=== PATIENT | male | born 1955 | race Caucasian/White ===

== ENCOUNTER 2018-10-01 16:45 | Inpatient (IN) | payer OTHER ==
[2018-10-01] MEDS ORDERED: ONDANSETRON 4 MG INJ IV ×3 (18:30→20:30)
[2018-10-01] MEDS: morphine 10 MG INJ IV (18:40)
[2018-10-01 18:42] LABS: ADD MAN DIFF? NO
[2018-10-01 18:47] LABS: WHITE BLOOD COUNT 11.7 10^3/ul (4.8-10.8)
[2018-10-01 18:47] LABS: BASOPHIL # 0.1 10^3/ul (0.0-0.1); BASOPHILS % 0.7 % (0.0-2.0); EOSINOPHILS # 0.3 10^3/ul (0.0-0.5); EOSINOPHILS % 2.9 % (0.0-7.0); HEMATOCRIT 37.8 % (42.0-52.0); HEMOGLOBIN 11.6 g/dl (14.0-18.0); LYMPHOCYTES # 2.9 10^3/ul (0.8-2.9); LYMPHOCYTES % 24.7 % (15.0-51.0); MEAN CORPUSCULAR HEMOGLOBIN 24.7 pg (29.0-33.0); MEAN CORPUSCULAR HGB CONC 30.7 g/dl (32.0-37.0); MEAN CORPUSCULAR VOLUME 80.6 fl (82.0-101.0); MONOCYTE # 1.2 10^3/ul (0.3-0.9); MONOCYTES % 10.2 % (0.0-11.0); NEUTROPHIL # 7.2 10^3/ul (1.6-7.5); NEUTROPHILS % 61.2 % (39.0-77.0); PLATELET COUNT 477 10^3/UL (140-415); RED BLOOD COUNT 4.69 10^6/ul (4.70-6.10); RED CELL DISTRIBUTION WIDTH 14.4 % (11.5-14.5)
[2018-10-01] MEDS ORDERED: ZOLPIDEM 5 MG TAB PO (19:00)
[2018-10-01 19:03] LABS: ALANINE AMINOTRANSFERASE 29 IU/L (13-69); ALBUMIN 4.2 g/dl (3.3-4.9); ALBUMIN/GLOBULIN RATIO 1.05; ALKALINE PHOSPHATASE 132 IU/L (42-121); ANION GAP 12 (5-13); ASPARTATE AMINO TRANSFERASE 31 IU/L (15-46); BILIRUBIN,INDIRECT 0.4 mg/dl (0-1.1); BILIRUBIN,TOTAL 0.4 mg/dl (0.2-1.3); BLOOD UREA NITROGEN 18 mg/dl (7-20); CALCIUM 9.8 mg/dl (8.4-10.2); CARBON DIOXIDE 29 mmol/L (21-31); CHLORIDE 99 mmol/L (97-110); CREATININE 0.86 mg/dl (0.61-1.24); Estimated GFR > 60 mL/min (>60); GLUCOSE 152 mg/dl (70-220); POTASSIUM 4.1 mmol/L (3.5-5.1); SODIUM 140 mmol/L (135-144); TOTAL PROTEIN 8.2 g/dl (6.1-8.1)
[2018-10-01 19:15] LABS: INR 1.17; PT RATIO 1.2
[2018-10-01 19:16] LABS: PARTIAL THROMBOPLASTIN TIME 34.8 Sec (23.0-35.0)
[2018-10-01] MEDS: DEXTROSE 5%-0.45% NACL 1,000 ML IV (19:57)
[2018-10-01] MEDS ORDERED: BISACODYL (EC) 5 MG TAB PO (20:30)
[2018-10-01] MEDS ORDERED: DOCUSATE SODIUM 100 MG CAP PO (20:30)
[2018-10-01] MEDS ORDERED: NACL 0.9% 3 ML SYG IV (20:30)
[2018-10-01] MEDS ORDERED: METOPROLOL 5 MG INJ (21:00)
[2018-10-01] MEDS: ACETAMINOPHEN 325 MG TAB PO (21:20)
[2018-10-01] MEDS: HYDROmorphONE 0.5 MG/0.5 ML SYG IV (22:08)
[2018-10-01] MEDS: HYDROmorphONE 1 MG/ML SYG IV (22:38)
[2018-10-02] MEDS ORDERED: SOD CHLORIDE 0.9% 1,000 ML IV
[2018-10-02] MEDS: DILTIAZEM 25 MG INJ IV ×2 (00:04→03:17)
[2018-10-02] MEDS: MAGNESIUM SULFATE 2 GM/50 ML 50 ML IVPB (00:11)
[2018-10-02 00:18] LABS: ADD MAN DIFF? NO
[2018-10-02 00:22] LABS: BASOPHIL # 0.1 10^3/ul (0.0-0.1); BASOPHILS % 0.7 % (0.0-2.0); EOSINOPHILS # 0.3 10^3/ul (0.0-0.5); EOSINOPHILS % 2.8 % (0.0-7.0); HEMATOCRIT 37.5 % (42.0-52.0); HEMOGLOBIN 11.5 g/dl (14.0-18.0); LYMPHOCYTES # 3.1 10^3/ul (0.8-2.9); LYMPHOCYTES % 28.4 % (15.0-51.0); MEAN CORPUSCULAR HEMOGLOBIN 24.9 pg (29.0-33.0); MEAN CORPUSCULAR HGB CONC 30.7 g/dl (32.0-37.0); MEAN CORPUSCULAR VOLUME 81.3 fl (82.0-101.0); MEAN PLATELET VOLUME 9.4 fl (7.4-10.4); MONOCYTE # 1.1 10^3/ul (0.3-0.9); MONOCYTES % 10.4 % (0.0-11.0); NEUTROPHIL # 6.3 10^3/ul (1.6-7.5); NEUTROPHILS % 57.4 % (39.0-77.0); PLATELET COUNT 458 10^3/UL (140-415); RED BLOOD COUNT 4.61 10^6/ul (4.70-6.10); RED CELL DISTRIBUTION WIDTH 14.6 % (11.5-14.5)
[2018-10-02] MEDS: HEPARIN 1000 UNITS/ML 10 ML INJ IV (00:26)
[2018-10-02] MEDS: HEPARIN 25000 UNITS/250 ML 250 ML IV ×2 (00:26→10:48)
[2018-10-02 00:42] LABS: INR 1.25; PARTIAL THROMBOPLASTIN TIME 32.5 Sec (23.0-35.0); PROTIME 15.8 Sec (11.9-14.9); PT RATIO 1.2
[2018-10-02] MEDS: morphine 4 MG/ML VIAL IV ×6 (01:38→22:43)
[2018-10-02] MEDS: DILTIAZEM-D5W 125MG/125ML DRIP 125 ML IV (04:57)
[2018-10-02] MEDS ORDERED: HEPARIN 1000 UNITS/ML 10 ML INJ IV (05:30)
[2018-10-02 07:18] LABS: ADD MAN DIFF? NO
[2018-10-02 07:21] LABS: BASOPHIL # 0.1 10^3/ul (0.0-0.1); BASOPHILS % 0.8 % (0.0-2.0); EOSINOPHILS # 0.3 10^3/ul (0.0-0.5); EOSINOPHILS % 3.1 % (0.0-7.0); HEMATOCRIT 36.7 % (42.0-52.0); HEMOGLOBIN 11.4 g/dl (14.0-18.0); LYMPHOCYTES % 20.5 % (15.0-51.0); MEAN CORPUSCULAR HEMOGLOBIN 25.1 pg (29.0-33.0); MEAN CORPUSCULAR HGB CONC 31.1 g/dl (32.0-37.0); MEAN CORPUSCULAR VOLUME 80.8 fl (82.0-101.0); MEAN PLATELET VOLUME 9.4 fl (7.4-10.4); MONOCYTE # 0.9 10^3/ul (0.3-0.9); NEUTROPHIL # 6.6 10^3/ul (1.6-7.5); NEUTROPHILS % 66.1 % (39.0-77.0); PLATELET COUNT 442 10^3/UL (140-415); RED BLOOD COUNT 4.54 10^6/ul (4.70-6.10); RED CELL DISTRIBUTION WIDTH 14.4 % (11.5-14.5)
[2018-10-02] MEDS ORDERED: VANCOMYCIN IV PER PHARMACY XX (07:30)
[2018-10-02 07:37] LABS: IRON 13 ug/dl (35-150)
[2018-10-02 07:39] LABS: ALANINE AMINOTRANSFERASE 26 IU/L (13-69); ALBUMIN 3.5 g/dl (3.3-4.9); ALKALINE PHOSPHATASE 117 IU/L (42-121); ANION GAP 7 (5-13); ASPARTATE AMINO TRANSFERASE 25 IU/L (15-46); BILIRUBIN,INDIRECT 0.3 mg/dl (0-1.1); BILIRUBIN,TOTAL 0.3 mg/dl (0.2-1.3); BLOOD UREA NITROGEN 18 mg/dl (7-20); CALCIUM 9.4 mg/dl (8.4-10.2); CARBON DIOXIDE 29 mmol/L (21-31); CHLORIDE 102 mmol/L (97-110); CREATININE 0.81 mg/dl (0.61-1.24); Estimated GFR > 60 mL/min (>60); GLUCOSE 259 mg/dl (70-220); POTASSIUM 4.2 mmol/L (3.5-5.1); SODIUM 138 mmol/L (135-144)
[2018-10-02 07:41] LABS: MAGNESIUM 1.9 mg/dl (1.7-2.5)
[2018-10-02 07:41] LABS: CHOL/HDL RATIO 4.2 RATIO; CHOLESTEROL 80 mg/dl (100-200); HDL CHOLESTEROL 19 mg/dl (30-78); LDL CHOLESTEROL,CALCULATED 45 mg/dl; TRIGLYCERIDES 81 mg/dl (0-149)
[2018-10-02 07:43] LABS: PARTIAL THROMBOPLASTIN TIME 44.5 Sec (23.0-35.0)
[2018-10-02 07:47] LABS: % IRON SATURATION 5 % SAT (22-52); TOTAL IRON BINDING CAPACITY 255 ug/dl (241-421)
[2018-10-02] MEDS: PIPER-TAZO 3.375 GM IV (PMX) 100 ML IVPB ×4 (08:21→23:46)
[2018-10-02] MEDS: FUROSEMIDE 20 MG INJ IV (08:34)
[2018-10-02] MEDS: VANCOMYCIN HCL 1.5 GM in SOD CHLORIDE 0.9% 250 ML IVPB (09:18)
[2018-10-02] MEDS ORDERED: morphine 2 MG INJ (10:01)
[2018-10-02] MEDS: morphine 2 MG INJ IV (10:09)
[2018-10-02] MEDS ORDERED: DEXTROSE 50% 50 ML SYRINGE IV ×2 (11:00)
[2018-10-02] MEDS ORDERED: GLUCOSE GEL 15 GRAM TUBE BUCCAL (11:00)
[2018-10-02] MEDS ORDERED: GLUCAGON 1 MG INJ IM (11:00)
[2018-10-02] MEDS ORDERED: GLUCOSE GEL 15 GRAM TUBE PO ×2 (11:00)
[2018-10-02 11:18] LABS: B-TYPE NATRIURETIC PEPTIDE 619 PG/ML (0-125)
[2018-10-02] MEDS: DOCUSATE SODIUM 250 MG CAP PO (11:51)
[2018-10-02] MEDS: METOPROLOL 25 MG TAB PO (11:51)
[2018-10-02] MEDS: MAGNESIUM SULFATE 1 GM/D5W 100 ML IVPB (11:52)
[2018-10-02] MEDS: morphine (ER) 15 MG TAB PO ×2 (11:56→21:31)
[2018-10-02] MEDS: INSULIN ASPART [NOVOLOG] 3 ML PEN SC ×5 (12:13→20:25)
[2018-10-02 12:26] LABS: CREATINE KINASE 164 IU/L (23-200)
[2018-10-02 12:39] LABS: CK INDEX 1.3; CK-MB 2.08 ng/ml (0.0-2.4); TROPONIN-I 0.038 ng/ml (0.000-0.120)
[2018-10-02] MEDS: AMIODARONE 150MG/D5W BOLUS 100 ML IV (13:11)
[2018-10-02] MEDS ORDERED: METOPROLOL 25 MG TAB PO (14:00)
[2018-10-02] MEDS: AMIODARONE 900 MG in DEXTROSE 5% 482 ML IV (14:22)
[2018-10-02] MEDS: SOD FERRIC GLUC COMPLX 125 MG in SOD CHLORIDE 0.9% 100 ML IVPB (14:25)
[2018-10-02] MEDS: METOPROLOL 50 MG TAB PO ×2 (14:43→21:31)
[2018-10-02] MEDS: ATORVASTATIN 20 MG TAB PO (20:16)
[2018-10-02] MEDS: ATORVASTATIN 40 MG TAB PO (20:16)
[2018-10-02] MEDS: VANCOMYCIN 1 GM 250 ML IVPB (20:17)
[2018-10-02] MEDS: INSULIN GLARGINE [LANTus] (100 UNITS/ML) SYG SC (20:26)
[2018-10-02 20:31] LABS: PARTIAL THROMBOPLASTIN TIME 71.2 Sec (23.0-35.0)
[2018-10-03] MEDS: morphine 4 MG/ML VIAL IV ×2 (02:01→05:07)
[2018-10-03] MEDS: ACCU-CHEK XX (02:12)
[2018-10-03] MEDS: PIPER-TAZO 3.375 GM IV (PMX) 100 ML IVPB ×4 (05:07→23:21)
[2018-10-03] MEDS: METOPROLOL 50 MG TAB PO ×3 (05:07→23:22)
[2018-10-03 05:53] LABS: ADD MAN DIFF? NO
[2018-10-03 06:01] LABS: WHITE BLOOD COUNT 12.2 10^3/ul (4.8-10.8)
[2018-10-03 06:01] LABS: BASOPHIL # 0.1 10^3/ul (0.0-0.1); BASOPHILS % 0.7 % (0.0-2.0); EOSINOPHILS # 0.3 10^3/ul (0.0-0.5); EOSINOPHILS % 2.1 % (0.0-7.0); HEMATOCRIT 35.6 % (42.0-52.0); HEMOGLOBIN 10.9 g/dl (14.0-18.0); LYMPHOCYTES # 2.6 10^3/ul (0.8-2.9); LYMPHOCYTES % 21.4 % (15.0-51.0); MEAN CORPUSCULAR HEMOGLOBIN 24.6 pg (29.0-33.0); MEAN CORPUSCULAR HGB CONC 30.6 g/dl (32.0-37.0); MEAN CORPUSCULAR VOLUME 80.4 fl (82.0-101.0); MEAN PLATELET VOLUME 9.5 fl (7.4-10.4); MONOCYTES % 7.9 % (0.0-11.0); NEUTROPHIL # 8.2 10^3/ul (1.6-7.5); NEUTROPHILS % 67.7 % (39.0-77.0); PLATELET COUNT 443 10^3/UL (140-415); RED BLOOD COUNT 4.43 10^6/ul (4.70-6.10); RED CELL DISTRIBUTION WIDTH 14.3 % (11.5-14.5)
[2018-10-03 06:35] LABS: ANION GAP 9 (5-13); BLOOD UREA NITROGEN 15 mg/dl (7-20); CALCIUM 9.1 mg/dl (8.4-10.2); CARBON DIOXIDE 27 mmol/L (21-31); CHLORIDE 102 mmol/L (97-110); CREATININE 0.71 mg/dl (0.61-1.24); Estimated GFR > 60 mL/min (>60); GLUCOSE 190 mg/dl (70-220); MAGNESIUM 1.8 mg/dl (1.7-2.5); POTASSIUM 3.8 mmol/L (3.5-5.1); SODIUM 138 mmol/L (135-144)
[2018-10-03 06:51] LABS: PROCALCITONIN 0.06 ng/mL (0.00-0.10)
[2018-10-03] MEDS ORDERED: GELATIN SIZE 100 SPONGE (06:54)
[2018-10-03] MEDS ORDERED: THROMBIN 5000 UNIT VIAL (06:55)
[2018-10-03] MEDS ORDERED: HEPARIN 1000 UNITS/ML 10 ML INJ ×2 (06:55→07:08)
[2018-10-03] MEDS ORDERED: MIDAZOLAM 1 MG/ML 2 ML INJ (07:08)
[2018-10-03] MEDS ORDERED: ROCURONIUM 50 MG INJ (07:08)
[2018-10-03] MEDS ORDERED: SUCCINYLCHOLINE CHLORIDE 100 MG/5 ML SYG IV (07:08)
[2018-10-03] MEDS ORDERED: CEFAZOLIN 1 GM INJ (07:08)
[2018-10-03] MEDS ORDERED: PROPOFOL 20 ML (07:08)
[2018-10-03 07:24] LABS: ERYTHROCYTE SEDIMENTATION RATE 85 mm/Hr (0-20)
[2018-10-03] MEDS: HEPARIN 1000 UNITS/ML 10 ML INJ IRR (07:25)
[2018-10-03] MEDS: VANCOMYCIN 1 GM 250 ML IVPB (07:36)
[2018-10-03] MEDS: INSULIN ASPART [NOVOLOG] 3 ML PEN SC ×7 (08:00→20:54)
[2018-10-03] MEDS ORDERED: PHENYLephrine (100 MCG/ML) 10ML SYG ×4 (08:51→10:40)
[2018-10-03] MEDS: morphine (ER) 15 MG TAB PO ×2 (09:00→16:59)
[2018-10-03] MEDS: DOCUSATE SODIUM 250 MG CAP PO (09:00)
[2018-10-03] MEDS: FUROSEMIDE 20 MG INJ IV (09:00)
[2018-10-03] MEDS ORDERED: ONDANSETRON 4 MG INJ IV (10:00)
[2018-10-03] MEDS ORDERED: HYDROmorphONE 1 MG/5 ML IV SYRINGE IV (10:00)
[2018-10-03] MEDS ORDERED: FENTAnyl 50 MCG/ML VIAL IV (10:00)
[2018-10-03] MEDS ORDERED: NEOSTIGMINE 3 MG/3 ML SYRINGE (11:14)
[2018-10-03] MEDS ORDERED: GLYCOPYRROLATE 0.4 MG INJ (11:14)
[2018-10-03] MEDS: SOD FERRIC GLUC COMPLX 125 MG in SOD CHLORIDE 0.9% 100 ML IVPB (13:00)
[2018-10-03] MEDS: niCARdipine 50 MG in SOD CHLORIDE 0.9% 480 ML IV (13:24)
[2018-10-03] MEDS: ASPIRIN 325 MG TAB PO (13:59)
[2018-10-03] MEDS: CLOPIDOGREL 75 MG TAB PO (13:59)
[2018-10-03] MEDS: HYDROmorphONE 1 MG/ML SYG IV ×2 (14:03→21:05)
[2018-10-03] MEDS: HEPARIN 25000 UNITS/250 ML 250 ML IV (14:10)
[2018-10-03] MEDS: HYDROmorphONE 0.5 MG/0.5 ML SYG IV (14:53)
[2018-10-03] MEDS: MAGNESIUM SULFATE 1 GM/D5W 100 ML IVPB (16:06)
[2018-10-03] MEDS: AMIODARONE 200 MG TAB PO (16:58)
[2018-10-03] MEDS ORDERED: METOPROLOL 50 MG TAB PO (18:00)
[2018-10-03] MEDS: DILTIAZEM 25 MG INJ IV (18:53)
[2018-10-03 19:08] LABS: VANCOMYCIN,TROUGH 9.6 ug/ml (10.0-20.0)
[2018-10-03] MEDS: AMIODARONE 900 MG in DEXTROSE 5% 482 ML IV (19:32)
[2018-10-03] MEDS: INSULIN GLARGINE [LANTus] (100 UNITS/ML) SYG SC (19:55)
[2018-10-03] MEDS: VANCOMYCIN HCL 1.25 GM in SOD CHLORIDE 0.9% 250 ML IVPB (20:25)
[2018-10-03] MEDS: ATORVASTATIN 40 MG TAB PO (20:49)
[2018-10-03] MEDS ORDERED: AMIODARONE 200 MG TAB PO (21:00)
[2018-10-04] MEDS: ACCU-CHEK XX (01:50)
[2018-10-04] MEDS: HYDROmorphONE 1 MG/ML SYG IV ×2 (04:26→11:45)
[2018-10-04 04:59] LABS: ADD MAN DIFF? NO
[2018-10-04 05:04] LABS: WHITE BLOOD COUNT 8.2 10^3/ul (4.8-10.8)
[2018-10-04 05:04] LABS: ABNORMAL IP MESSAGE 1; BASOPHIL # 0.1 10^3/ul (0.0-0.1); BASOPHILS % 0.6 % (0.0-2.0); EOSINOPHILS % 0.2 % (0.0-7.0); HEMATOCRIT 20.6 % (42.0-52.0); LYMPHOCYTES # 1.2 10^3/ul (0.8-2.9); LYMPHOCYTES % 14.4 % (15.0-51.0); MEAN CORPUSCULAR HGB CONC 30.6 g/dl (32.0-37.0); MEAN CORPUSCULAR VOLUME 81.7 fl (82.0-101.0); MONOCYTE # 0.8 10^3/ul (0.3-0.9); MONOCYTES % 9.8 % (0.0-11.0); NEUTROPHIL # 6.1 10^3/ul (1.6-7.5); NEUTROPHILS % 74.8 % (39.0-77.0); PLATELET COUNT 267 10^3/UL (140-415); POSITIVE DIFF @See below; RED BLOOD COUNT 2.52 10^6/ul (4.70-6.10); RED CELL DISTRIBUTION WIDTH 14.6 % (11.5-14.5)
[2018-10-04 05:12] LABS: HEMOGLOBIN 6.3 g/dl (14.0-18.0)
[2018-10-04 05:17] LABS: MAGNESIUM 1.9 mg/dl (1.7-2.5)
[2018-10-04 05:28] LABS: HEMOGLOBIN 8.8 g/dl (14.0-18.0)
[2018-10-04 05:28] LABS: HEMATOCRIT 28.5 % (42.0-52.0)
[2018-10-04] MEDS: METOPROLOL 50 MG TAB PO ×2 (05:30→12:00)
[2018-10-04] MEDS: PIPER-TAZO 3.375 GM IV (PMX) 100 ML IVPB ×4 (05:30→23:59)
[2018-10-04 05:33] LABS: ANION GAP 9 (5-13); BLOOD UREA NITROGEN 18 mg/dl (7-20); CALCIUM 8.6 mg/dl (8.4-10.2); CARBON DIOXIDE 24 mmol/L (21-31); CHLORIDE 106 mmol/L (97-110); CREATININE 1.24 mg/dl (0.61-1.24); Estimated GFR 59 mL/min (>60); GLUCOSE 198 mg/dl (70-220); POTASSIUM 4.2 mmol/L (3.5-5.1); SODIUM 139 mmol/L (135-144)
[2018-10-04] MEDS ORDERED: PHENYLephrine (100 MCG/ML) 10ML SYG (07:00)
[2018-10-04] MEDS: INSULIN ASPART [NOVOLOG] 3 ML PEN SC ×7 (07:35→20:46)
[2018-10-04] MEDS ORDERED: BACITRACIN 50000 UNITS INJ (07:40)
[2018-10-04] MEDS ORDERED: POLYMYXIN B 500000 UNIT INJ (07:41)
[2018-10-04] MEDS ORDERED: MIDAZOLAM 1 MG/ML 2 ML INJ (08:27)
[2018-10-04] MEDS ORDERED: FENTAnyl 50 MCG/ML VIAL (08:27)
[2018-10-04] MEDS ORDERED: PROPOFOL 20 ML (08:27)
[2018-10-04] MEDS: DOCUSATE SODIUM 250 MG CAP PO (08:29)
[2018-10-04] MEDS: FUROSEMIDE 20 MG INJ IV (08:29)
[2018-10-04] MEDS: LIDOCAINE 1% (MPF) 30 ML INJ (08:43)
[2018-10-04 09:30] LABS: ANISOCYTOSIS 1+ (0-0); BAND NEUTROPHILS #M 0.1 10^3/ul (0.0-0.6); BAND NEUTROPHILS % (M) 2 % (0-4); BURR CELLS 1+ (0-0); LYMPHOCYTES #M 1.2 10^3/ul (0.8-2.9); LYMPHOCYTES % (M) 15 % (15-51); MICROCYTOSIS 1+ (0-0); MONOCYTE #M 0.2 10^3/ul (0.3-0.9); MONOCYTES % (M) 3 % (0-11); PLATELET ESTIMATE NORMAL; POIKILOCYTOSIS 1+ (0-0); POLYCHROMASIA 2+ (0-0); SEG NEUT #M 6.6 10^3/ul (1.6-7.5); SEGMENTED NEUTROPHILS (M) % 80 % (39-77); SMUDGE%M 4 % (0-0); SPHEROCYTES 1+ (0-0)
[2018-10-04] MEDS: MAGNESIUM SULFATE 1 GM/D5W 100 ML IVPB (10:30)
[2018-10-04] MEDS: LABETALOL HCL 20MG INJ IV (10:31)
[2018-10-04] MEDS: ASPIRIN 325 MG TAB PO (10:31)
[2018-10-04] MEDS: APIXABAN 5 MG TABLET PO ×2 (10:31→20:40)
[2018-10-04] MEDS: VANCOMYCIN HCL 1.25 GM in SOD CHLORIDE 0.9% 250 ML IVPB ×2 (10:32→20:41)
[2018-10-04] MEDS: SOD CHLORIDE 0.9% 500 ML IV (10:38)
[2018-10-04] MEDS: SOD CHLORIDE 0.9% 1,000 ML IV (10:38)
[2018-10-04] MEDS: morphine (ER) 15 MG TAB PO ×2 (10:38→20:40)
[2018-10-04] MEDS: DAKINS 0.0125%(1/40) 473 ML SOLUTION TP (12:47)
[2018-10-04] MEDS: SOD FERRIC GLUC COMPLX 125 MG in SOD CHLORIDE 0.9% 100 ML IVPB (13:00)
[2018-10-04] MEDS: AMIODARONE 900 MG in DEXTROSE 5% 482 ML IV (14:58)
[2018-10-04] MEDS: METOPROLOL 25 MG TAB PO ×2 (17:53→23:58)
[2018-10-04] MEDS: INSULIN GLARGINE [LANTus] (100 UNITS/ML) SYG SC (19:41)
[2018-10-04] MEDS: ATORVASTATIN 40 MG TAB PO (20:40)
[2018-10-05] MEDS: ACCU-CHEK XX (02:23)
[2018-10-05 05:10] LABS: ADD MAN DIFF? NO
[2018-10-05 05:18] LABS: BASOPHIL # 0.1 10^3/ul (0.0-0.1); BASOPHILS % 0.8 % (0.0-2.0); EOSINOPHILS # 0.2 10^3/ul (0.0-0.5); EOSINOPHILS % 1.8 % (0.0-7.0); HEMATOCRIT 27.2 % (42.0-52.0); HEMOGLOBIN 8.1 g/dl (14.0-18.0); LYMPHOCYTES # 1.6 10^3/ul (0.8-2.9); LYMPHOCYTES % 14.4 % (15.0-51.0); MEAN CORPUSCULAR HEMOGLOBIN 24.8 pg (29.0-33.0); MEAN CORPUSCULAR HGB CONC 29.8 g/dl (32.0-37.0); MEAN CORPUSCULAR VOLUME 83.2 fl (82.0-101.0); MEAN PLATELET VOLUME 9.8 fl (7.4-10.4); MONOCYTE # 1.3 10^3/ul (0.3-0.9); MONOCYTES % 11.5 % (0.0-11.0); NEUTROPHIL # 8.1 10^3/ul (1.6-7.5); PLATELET COUNT 338 10^3/UL (140-415); RED BLOOD COUNT 3.27 10^6/ul (4.70-6.10); RED CELL DISTRIBUTION WIDTH 14.9 % (11.5-14.5)
[2018-10-05 05:18] LABS: WHITE BLOOD COUNT 11.3 10^3/ul (4.8-10.8)
[2018-10-05] MEDS: PIPER-TAZO 3.375 GM IV (PMX) 100 ML IVPB ×3 (05:42→18:02)
[2018-10-05] MEDS: METOPROLOL 25 MG TAB PO ×3 (05:43→18:11)
[2018-10-05 05:47] LABS: ANION GAP 9 (5-13); BLOOD UREA NITROGEN 22 mg/dl (7-20); CALCIUM 8.1 mg/dl (8.4-10.2); CARBON DIOXIDE 22 mmol/L (21-31); CHLORIDE 107 mmol/L (97-110); CREATININE 1.47 mg/dl (0.61-1.24); Estimated GFR 48 mL/min (>60); GLUCOSE 184 mg/dl (70-220); POTASSIUM 4.1 mmol/L (3.5-5.1); SODIUM 138 mmol/L (135-144)
[2018-10-05] MEDS: HYDROmorphONE 1 MG/ML SYG IV ×3 (06:42→16:37)
[2018-10-05] MEDS: INSULIN ASPART [NOVOLOG] 3 ML PEN SC ×7 (08:00→20:24)
[2018-10-05] MEDS: FUROSEMIDE 20 MG INJ IV (08:31)
[2018-10-05] MEDS: DOCUSATE SODIUM 250 MG CAP PO (08:31)
[2018-10-05] MEDS: morphine (ER) 15 MG TAB PO ×2 (08:32→20:19)
[2018-10-05] MEDS: APIXABAN 5 MG TABLET PO ×2 (08:32→20:19)
[2018-10-05] MEDS: AMIODARONE 200 MG TAB PO ×2 (10:31→20:20)
[2018-10-05] MEDS: DAKINS 0.0125%(1/40) 473 ML SOLUTION TP (10:35)
[2018-10-05] MEDS: SOD FERRIC GLUC COMPLX 125 MG in SOD CHLORIDE 0.9% 100 ML IVPB (15:31)
[2018-10-05] MEDS: morphine 4 MG/ML VIAL IV (18:20)
[2018-10-05] MEDS ORDERED: VANCOMYCIN HCL 1.25 GM in SOD CHLORIDE 0.9% 250 ML IVPB (20:00)
[2018-10-05] MEDS: ATORVASTATIN 40 MG TAB PO (20:18)
[2018-10-05] MEDS: VANCOMYCIN HCL 1.5 GM in SOD CHLORIDE 0.9% 250 ML IVPB (20:18)
[2018-10-05] MEDS: INSULIN GLARGINE [LANTus] (100 UNITS/ML) SYG SC (21:43)
[2018-10-06] MEDS: PIPER-TAZO 3.375 GM IV (PMX) 100 ML IVPB ×5 (00:50→23:30)
[2018-10-06] MEDS: METOPROLOL 25 MG TAB PO ×5 (00:50→23:31)
[2018-10-06] MEDS: HYDROmorphONE 1 MG/ML SYG IV ×3 (00:57→11:08)
[2018-10-06] MEDS: ACCU-CHEK XX (01:39)
[2018-10-06] MEDS: morphine 4 MG/ML VIAL IV (04:06)
[2018-10-06 06:34] LABS: ADD MAN DIFF? NO
[2018-10-06 06:36] LABS: WHITE BLOOD COUNT 11.8 10^3/ul (4.8-10.8)
[2018-10-06 06:36] LABS: BASOPHIL # 0.1 10^3/ul (0.0-0.1); BASOPHILS % 0.6 % (0.0-2.0); EOSINOPHILS # 0.2 10^3/ul (0.0-0.5); EOSINOPHILS % 1.8 % (0.0-7.0); HEMATOCRIT 26.8 % (42.0-52.0); HEMOGLOBIN 8.2 g/dl (14.0-18.0); LYMPHOCYTES # 1.6 10^3/ul (0.8-2.9); LYMPHOCYTES % 13.4 % (15.0-51.0); MEAN CORPUSCULAR HEMOGLOBIN 25.2 pg (29.0-33.0); MEAN CORPUSCULAR HGB CONC 30.6 g/dl (32.0-37.0); MEAN CORPUSCULAR VOLUME 82.5 fl (82.0-101.0); MEAN PLATELET VOLUME 9.7 fl (7.4-10.4); MONOCYTE # 1.3 10^3/ul (0.3-0.9); MONOCYTES % 10.7 % (0.0-11.0); NEUTROPHIL # 8.6 10^3/ul (1.6-7.5); NEUTROPHILS % 73.1 % (39.0-77.0); PLATELET COUNT 346 10^3/UL (140-415); RED BLOOD COUNT 3.25 10^6/ul (4.70-6.10); RED CELL DISTRIBUTION WIDTH 14.7 % (11.5-14.5)
[2018-10-06 07:01] LABS: ALBUMIN 3.1 g/dl (3.3-4.9); ANION GAP 9 (5-13); BLOOD UREA NITROGEN 29 mg/dl (7-20); CALCIUM 8.5 mg/dl (8.4-10.2); CARBON DIOXIDE 24 mmol/L (21-31); CHLORIDE 105 mmol/L (97-110); CREATININE 1.68 mg/dl (0.61-1.24); GLUCOSE 155 mg/dl (70-220); MAGNESIUM 2.3 mg/dl (1.7-2.5); PHOSPHORUS 4.1 mg/dl (2.5-4.9); POTASSIUM 4.2 mmol/L (3.5-5.1); SODIUM 138 mmol/L (135-144)
[2018-10-06] MEDS: APIXABAN 5 MG TABLET PO ×2 (08:38→20:22)
[2018-10-06] MEDS: FUROSEMIDE 20 MG INJ IV (08:38)
[2018-10-06] MEDS: AMIODARONE 200 MG TAB PO ×2 (08:38→20:23)
[2018-10-06] MEDS: DOCUSATE SODIUM 250 MG CAP PO (08:38)
[2018-10-06] MEDS: morphine (ER) 15 MG TAB PO ×2 (08:39→20:23)
[2018-10-06] MEDS: INSULIN ASPART [NOVOLOG] 3 ML PEN SC ×7 (08:47→20:31)
[2018-10-06] MEDS: DAKINS 0.0125%(1/40) 473 ML SOLUTION TP (08:48)
[2018-10-06] MEDS: SENNA/DOCUSATE NA (8.6MG/50MG) TAB PO ×2 (12:15→20:23)
[2018-10-06] MEDS: SOD FERRIC GLUC COMPLX 125 MG in SOD CHLORIDE 0.9% 100 ML IVPB (13:00)
[2018-10-06] MEDS: VANCOMYCIN HCL 1.5 GM in SOD CHLORIDE 0.9% 250 ML IVPB (20:20)
[2018-10-06] MEDS: ATORVASTATIN 40 MG TAB PO (20:23)
[2018-10-06] MEDS: GENTAMICIN 0.1% 15 GM OINT TOP (20:32)
[2018-10-06] MEDS: ACETAMINOPHEN 325 MG TAB PO (20:37)
[2018-10-06] MEDS: INSULIN GLARGINE [LANTus] (100 UNITS/ML) SYG SC (21:56)
[2018-10-07] MEDS: ACCU-CHEK XX (02:00)
[2018-10-07] MEDS: HYDROmorphONE 1 MG/ML SYG IV ×2 (02:29→08:40)
[2018-10-07] MEDS: PIPER-TAZO 3.375 GM IV (PMX) 100 ML IVPB ×4 (06:04→23:40)
[2018-10-07] MEDS: METOPROLOL 25 MG TAB PO ×2 (06:05→11:56)
[2018-10-07 06:17] LABS: ADD MAN DIFF? NO
[2018-10-07 06:22] LABS: BASOPHIL # 0.1 10^3/ul (0.0-0.1); BASOPHILS % 0.7 % (0.0-2.0); EOSINOPHILS # 0.5 10^3/ul (0.0-0.5); HEMOGLOBIN 8.4 g/dl (14.0-18.0); LYMPHOCYTES # 1.3 10^3/ul (0.8-2.9); LYMPHOCYTES % 14.3 % (15.0-51.0); MEAN CORPUSCULAR HEMOGLOBIN 24.6 pg (29.0-33.0); MEAN CORPUSCULAR VOLUME 81.9 fl (82.0-101.0); MEAN PLATELET VOLUME 9.3 fl (7.4-10.4); MONOCYTES % 10.1 % (0.0-11.0); NEUTROPHIL # 6.5 10^3/ul (1.6-7.5); NEUTROPHILS % 69.5 % (39.0-77.0); PLATELET COUNT 327 10^3/UL (140-415); RED BLOOD COUNT 3.42 10^6/ul (4.70-6.10); RED CELL DISTRIBUTION WIDTH 14.6 % (11.5-14.5)
[2018-10-07 06:22] LABS: WHITE BLOOD COUNT 9.4 10^3/ul (4.8-10.8)
[2018-10-07 07:07] LABS: ANION GAP 7 (5-13); BLOOD UREA NITROGEN 22 mg/dl (7-20); CALCIUM 8.8 mg/dl (8.4-10.2); CARBON DIOXIDE 26 mmol/L (21-31); CHLORIDE 107 mmol/L (97-110); CREATININE 1.25 mg/dl (0.61-1.24); GLUCOSE 119 mg/dl (70-220); PHOSPHORUS 3.2 mg/dl (2.5-4.9); POTASSIUM 3.8 mmol/L (3.5-5.1); SODIUM 140 mmol/L (135-144)
[2018-10-07] MEDS: INSULIN ASPART [NOVOLOG] 3 ML PEN SC ×7 (07:55→20:06)
[2018-10-07] MEDS: AMIODARONE 200 MG TAB PO ×2 (08:38→21:00)
[2018-10-07] MEDS: APIXABAN 5 MG TABLET PO (08:39)
[2018-10-07] MEDS: GENTAMICIN 0.1% 15 GM OINT TOP ×3 (08:39→21:07)
[2018-10-07] MEDS: SENNA/DOCUSATE NA (8.6MG/50MG) TAB PO ×2 (08:39→19:58)
[2018-10-07] MEDS: FUROSEMIDE 20 MG INJ IV (08:39)
[2018-10-07] MEDS: DAKINS 0.0125%(1/40) 473 ML SOLUTION TP (08:39)
[2018-10-07] MEDS: morphine (ER) 15 MG TAB PO ×2 (08:49→21:00)
[2018-10-07] MEDS: METOPROLOL 50 MG TAB PO ×2 (18:28→23:40)
[2018-10-07] MEDS: morphine 4 MG/ML VIAL IV (19:54)
[2018-10-07] MEDS: ATORVASTATIN 40 MG TAB PO (19:58)
[2018-10-07] MEDS: INSULIN GLARGINE [LANTus] (100 UNITS/ML) SYG SC (20:07)
[2018-10-07] MEDS: ENOXAPARIN 100 MG/ML SYG SC (21:05)
[2018-10-08] MEDS: ACCU-CHEK XX (01:10)
[2018-10-08] MEDS: morphine 4 MG/ML VIAL IV ×3 (02:13→21:53)
[2018-10-08] MEDS: METOPROLOL 50 MG TAB PO ×4 (05:35→22:00)
[2018-10-08] MEDS: PIPER-TAZO 3.375 GM IV (PMX) 100 ML IVPB ×4 (05:35→23:46)
[2018-10-08 06:59] LABS: ADD MAN DIFF? NO
[2018-10-08 07:10] LABS: WHITE BLOOD COUNT 10.4 10^3/ul (4.8-10.8)
[2018-10-08 07:10] LABS: BASOPHIL # 0.1 10^3/ul (0.0-0.1); BASOPHILS % 0.7 % (0.0-2.0); EOSINOPHILS # 0.6 10^3/ul (0.0-0.5); HEMATOCRIT 27.9 % (42.0-52.0); HEMOGLOBIN 8.4 g/dl (14.0-18.0); LYMPHOCYTES # 2.4 10^3/ul (0.8-2.9); LYMPHOCYTES % 23.5 % (15.0-51.0); MEAN CORPUSCULAR HEMOGLOBIN 24.7 pg (29.0-33.0); MEAN CORPUSCULAR HGB CONC 30.1 g/dl (32.0-37.0); MEAN CORPUSCULAR VOLUME 82.1 fl (82.0-101.0); MEAN PLATELET VOLUME 9.8 fl (7.4-10.4); MONOCYTE # 1.2 10^3/ul (0.3-0.9); MONOCYTES % 11.6 % (0.0-11.0); NEUTROPHILS % 57.5 % (39.0-77.0); NUCLEATED RED BLOOD CELLS% 0.2 /100WBC (0.0-0.0); PLATELET COUNT 371 10^3/UL (140-415); RED CELL DISTRIBUTION WIDTH 14.8 % (11.5-14.5)
[2018-10-08 07:29] LABS: ALBUMIN 3.1 g/dl (3.3-4.9); ANION GAP 10 (5-13); BLOOD UREA NITROGEN 28 mg/dl (7-20); CALCIUM 8.2 mg/dl (8.4-10.2); CARBON DIOXIDE 27 mmol/L (21-31); CHLORIDE 102 mmol/L (97-110); CREATININE 1.42 mg/dl (0.61-1.24); GLUCOSE 177 mg/dl (70-220); MAGNESIUM 1.9 mg/dl (1.7-2.5); POTASSIUM 3.8 mmol/L (3.5-5.1); SODIUM 139 mmol/L (135-144)
[2018-10-08] MEDS: INSULIN ASPART [NOVOLOG] 3 ML PEN SC ×7 (07:58→21:24)
[2018-10-08] MEDS: SENNA/DOCUSATE NA (8.6MG/50MG) TAB PO ×2 (08:51→20:07)
[2018-10-08] MEDS: morphine (ER) 15 MG TAB PO ×2 (08:51→20:07)
[2018-10-08] MEDS: DAKINS 0.0125%(1/40) 473 ML SOLUTION TP (08:52)
[2018-10-08] MEDS: FUROSEMIDE 20 MG INJ IV (08:53)
[2018-10-08] MEDS: AMIODARONE 200 MG TAB PO ×2 (08:53→20:09)
[2018-10-08] MEDS: GENTAMICIN 0.1% 15 GM OINT TOP ×3 (08:54→21:00)
[2018-10-08] MEDS ORDERED: LIDOCAINE 2% (SDV) 5 ML INJ (16:39)
[2018-10-08] MEDS ORDERED: FENTAnyl 50 MCG/ML VIAL (16:39)
[2018-10-08] MEDS ORDERED: MIDAZOLAM 1 MG/ML 2 ML INJ (16:39)
[2018-10-08] MEDS ORDERED: PROPOFOL 20 ML (16:39)
[2018-10-08] MEDS: LIDOCAINE 1% (MPF) 30 ML INJ (16:50)
[2018-10-08] MEDS ORDERED: ONDANSETRON 4 MG INJ (16:55)
[2018-10-08] MEDS ORDERED: METOCLOPRAMIDE 10 MG INJ (16:55)
[2018-10-08] MEDS ORDERED: EPHEDrine 25 MG/5 ML SYG (17:08)
[2018-10-08] MEDS ORDERED: ONDANSETRON 4 MG INJ IV (17:30)
[2018-10-08] MEDS ORDERED: MEPERIDINE 25 MG INJ IV (17:30)
[2018-10-08] MEDS ORDERED: DIPHENHYDRAMINE 50 MG INJ IV (17:30)
[2018-10-08] MEDS ORDERED: FENTAnyl 50 MCG/ML VIAL IV (17:30)
[2018-10-08] MEDS ORDERED: PROCHLORPERAZINE 10 MG INJ IV (17:30)
[2018-10-08] MEDS ORDERED: HYDROmorphONE 1 MG/5 ML IV SYRINGE IV ×2 (17:30)
[2018-10-08] MEDS: HYDROmorphONE 1 MG/5 ML IV SYRINGE IV (17:43)
[2018-10-08] MEDS: LACTATED RINGER'S 1,000 ML IV (17:54)
[2018-10-08] MEDS: ATORVASTATIN 40 MG TAB PO (20:09)
[2018-10-08] MEDS: NAPHAZOLINE/PHENIRAMINE 15 ML OPH BOTH EYES (20:12)
[2018-10-08] MEDS: INSULIN GLARGINE [LANTus] (100 UNITS/ML) SYG SC (21:24)
[2018-10-08] MEDS: HYDROmorphONE 1 MG/ML SYG IV (23:51)
[2018-10-09] MEDS: morphine 4 MG/ML VIAL IV ×3 (02:03→14:06)
[2018-10-09] MEDS: ACCU-CHEK XX (02:07)
[2018-10-09] MEDS: HYDROmorphONE 1 MG/ML SYG IV (04:04)
[2018-10-09] MEDS: LACTATED RINGER'S 1,000 ML IV (04:04)
[2018-10-09] MEDS: METOPROLOL 50 MG TAB PO ×2 (05:30→20:17)
[2018-10-09] MEDS: PIPER-TAZO 3.375 GM IV (PMX) 100 ML IVPB ×3 (05:30→17:29)
[2018-10-09 06:21] LABS: ADD MAN DIFF? NO
[2018-10-09 06:27] LABS: WHITE BLOOD COUNT 9.2 10^3/ul (4.8-10.8)
[2018-10-09 06:27] LABS: BASOPHIL # 0.1 10^3/ul (0.0-0.1); BASOPHILS % 0.8 % (0.0-2.0); EOSINOPHILS # 0.5 10^3/ul (0.0-0.5); EOSINOPHILS % 5.3 % (0.0-7.0); HEMATOCRIT 26.5 % (42.0-52.0); HEMOGLOBIN 8.1 g/dl (14.0-18.0); LYMPHOCYTES # 1.3 10^3/ul (0.8-2.9); LYMPHOCYTES % 14.3 % (15.0-51.0); MEAN CORPUSCULAR HEMOGLOBIN 25.3 pg (29.0-33.0); MEAN CORPUSCULAR HGB CONC 30.6 g/dl (32.0-37.0); MEAN CORPUSCULAR VOLUME 82.8 fl (82.0-101.0); MEAN PLATELET VOLUME 9.5 fl (7.4-10.4); MONOCYTE # 1.2 10^3/ul (0.3-0.9); MONOCYTES % 12.5 % (0.0-11.0); NEUTROPHIL # 6.1 10^3/ul (1.6-7.5); NEUTROPHILS % 66.6 % (39.0-77.0); NUCLEATED RED BLOOD CELLS% 0.2 /100WBC (0.0-0.0); PLATELET COUNT 351 10^3/UL (140-415); RED CELL DISTRIBUTION WIDTH 14.9 % (11.5-14.5)
[2018-10-09 06:48] LABS: ANION GAP 9 (5-13); BLOOD UREA NITROGEN 23 mg/dl (7-20); CALCIUM 8.6 mg/dl (8.4-10.2); CARBON DIOXIDE 27 mmol/L (21-31); CHLORIDE 103 mmol/L (97-110); CREATININE 1.36 mg/dl (0.61-1.24); Estimated GFR 53 mL/min (>60); GLUCOSE 139 mg/dl (70-220); MAGNESIUM 1.9 mg/dl (1.7-2.5); PHOSPHORUS 3.8 mg/dl (2.5-4.9); POTASSIUM 3.7 mmol/L (3.5-5.1); SODIUM 139 mmol/L (135-144)
[2018-10-09] MEDS: AMIODARONE 200 MG TAB PO ×2 (08:07→20:17)
[2018-10-09] MEDS: FUROSEMIDE 20 MG INJ IV (08:10)
[2018-10-09] MEDS: SENNA/DOCUSATE NA (8.6MG/50MG) TAB PO ×2 (08:11→20:16)
[2018-10-09] MEDS: GENTAMICIN 0.1% 15 GM OINT TOP ×3 (08:11→21:22)
[2018-10-09] MEDS: morphine (ER) 15 MG TAB PO (08:11)
[2018-10-09] MEDS: DAKINS 0.0125%(1/40) 473 ML SOLUTION TP (08:11)
[2018-10-09] MEDS: INSULIN ASPART [NOVOLOG] 3 ML PEN SC ×7 (08:16→20:58)
[2018-10-09] MEDS: MAGNESIUM SULFATE 2 GM/50 ML 50 ML IVPB (12:16)
[2018-10-09] MEDS ORDERED: ACETAMINOPHEN 1000MG/100ML IV 100 ML IVPB (15:00)
[2018-10-09] MEDS: HYDROCODONE/APAP (7.5/325) TAB PO ×2 (15:17→21:26)
[2018-10-09] MEDS: ACETAMINOPHEN 325 MG TAB PO (18:09)
[2018-10-09] MEDS: ATORVASTATIN 40 MG TAB PO (20:16)
[2018-10-09] MEDS: INSULIN GLARGINE [LANTus] (100 UNITS/ML) SYG SC (20:58)
[2018-10-09] MEDS: APIXABAN 5 MG TABLET PO (21:22)
[2018-10-10] MEDS: PIPER-TAZO 3.375 GM IV (PMX) 100 ML IVPB ×2 (00:43→05:32)
[2018-10-10] MEDS: ACETAMINOPHEN 325 MG TAB PO (02:13)
[2018-10-10] MEDS: ACCU-CHEK XX (02:49)
[2018-10-10 06:41] LABS: ADD MAN DIFF? NO
[2018-10-10 06:50] LABS: BASOPHIL # 0.1 10^3/ul (0.0-0.1); BASOPHILS % 0.6 % (0.0-2.0); EOSINOPHILS # 0.2 10^3/ul (0.0-0.5); EOSINOPHILS % 1.9 % (0.0-7.0); HEMATOCRIT 27.8 % (42.0-52.0); HEMOGLOBIN 8.4 g/dl (14.0-18.0); LYMPHOCYTES # 1.3 10^3/ul (0.8-2.9); LYMPHOCYTES % 13.2 % (15.0-51.0); MEAN CORPUSCULAR HEMOGLOBIN 24.9 pg (29.0-33.0); MEAN CORPUSCULAR HGB CONC 30.2 g/dl (32.0-37.0); MEAN CORPUSCULAR VOLUME 82.5 fl (82.0-101.0); MEAN PLATELET VOLUME 9.8 fl (7.4-10.4); MONOCYTE # 0.9 10^3/ul (0.3-0.9); MONOCYTES % 8.7 % (0.0-11.0); NEUTROPHIL # 7.4 10^3/ul (1.6-7.5); NUCLEATED RED BLOOD CELLS% 0.2 /100WBC (0.0-0.0); PLATELET COUNT 369 10^3/UL (140-415); RED BLOOD COUNT 3.37 10^6/ul (4.70-6.10); RED CELL DISTRIBUTION WIDTH 15.4 % (11.5-14.5)
[2018-10-10 06:50] LABS: WHITE BLOOD COUNT 9.9 10^3/ul (4.8-10.8)
[2018-10-10 07:13] LABS: ANION GAP 10 (5-13); BLOOD UREA NITROGEN 25 mg/dl (7-20); CALCIUM 8.5 mg/dl (8.4-10.2); CARBON DIOXIDE 27 mmol/L (21-31); CHLORIDE 103 mmol/L (97-110); CREATININE 1.39 mg/dl (0.61-1.24); Estimated GFR 52 mL/min (>60); GLUCOSE 123 mg/dl (70-220); POTASSIUM 3.8 mmol/L (3.5-5.1); SODIUM 140 mmol/L (135-144)
[2018-10-10] MEDS: INSULIN ASPART [NOVOLOG] 3 ML PEN SC ×6 (07:55→17:20)
[2018-10-10 08:50] LABS: ERYTHROCYTE SEDIMENTATION RATE 91 mm/Hr (0-20)
[2018-10-10] MEDS: AMIODARONE 200 MG TAB PO (09:04)
[2018-10-10] MEDS: NAPHAZOLINE/PHENIRAMINE 15 ML OPH BOTH EYES (09:04)
[2018-10-10] MEDS: SENNA/DOCUSATE NA (8.6MG/50MG) TAB PO (09:05)
[2018-10-10] MEDS: GENTAMICIN 0.1% 15 GM OINT TOP ×2 (09:05→14:28)
[2018-10-10] MEDS: METOPROLOL 50 MG TAB PO (09:05)
[2018-10-10] MEDS: APIXABAN 5 MG TABLET PO (09:05)
[2018-10-10] MEDS: DAKINS 0.0125%(1/40) 473 ML SOLUTION TP (09:06)
[2018-10-10] MEDS: MEROPENEM 1 GM/50ML(PMX) 50 ML IVPB (14:27)
[2018-10-10] MEDS: HYDROCODONE/APAP (7.5/325) TAB PO ×2 (17:00→17:59)
== END 2018-10-10 18:51 | DRG 253 ==
LOC: ICU 21:44 → E/R 16:45 → ICU 10-03 12:10 → TEL 10-05 17:23 → 2NE 18:31 → 6WM 23:08
PROC: 041N09P Bypass Left Popliteal Artery to Foot Artery with Autologous Venous Tissue, Open Approach (ICD-10-PCS; principal; 2018-10-03 07:30)
PROC: 06BQ4ZZ Excision of Left Saphenous Vein, Percutaneous Endoscopic Approach (ICD-10-PCS; 2018-10-03 07:30)
PROC: 0Y6W0Z0 Detachment at Left 4th Toe, Complete, Open Approach (ICD-10-PCS; 2018-10-03 08:03)
PROC: 0Y6Y0Z0 Detachment at Left 5th Toe, Complete, Open Approach (ICD-10-PCS; 2018-10-03 08:03)
PROC: 0QBP0ZZ Excision of Left Metatarsal, Open Approach (ICD-10-PCS; 2018-10-03 08:03)
DX: E11.52 Type 2 diabetes mellitus with diabetic peripheral angiopathy with gangrene (principal); I96 Gangrene, not elsewhere classified; M86.9 Osteomyelitis, unspecified; I50.30 Unspecified diastolic (congestive) heart failure; N17.9 Acute kidney failure, unspecified; L03.116 Cellulitis of left lower limb; I70.222 Atherosclerosis of native arteries of extremities with rest pain, left leg; E11.42 Type 2 diabetes mellitus with diabetic polyneuropathy; E11.621 Type 2 diabetes mellitus with foot ulcer; L97.529 Non-pressure chronic ulcer of other part of left foot with unspecified severity; E11.65 Type 2 diabetes mellitus with hyperglycemia; I11.0 Hypertensive heart disease with heart failure; I48.91 Unspecified atrial fibrillation; D50.9 Iron deficiency anemia, unspecified; E87.70 Fluid overload, unspecified; E78.5 Hyperlipidemia, unspecified; B96.5 Pseudomonas (aeruginosa) (mallei) (pseudomallei) as the cause of diseases classified elsewhere; B95.2 Enterococcus as the cause of diseases classified elsewhere; B96.4 Proteus (mirabilis) (morganii) as the cause of diseases classified elsewhere; Z98.62 Peripheral vascular angioplasty status; Z79.4 Long term (current) use of insulin
CPT/HCPCS: 70450; 71045; 73630-LT; 76775; 80048; 80053; 80061; 80069; 80202; 82550; 82553; 82728; 82962; 83036; 83540; 83735; 83880; 84100; 84145; 84443; 84484; 85014; 85018; 85025; 85335; 85610; 85651; 85730; 86850; 86900; 86901; 87070; 87075; 87081; 87102; 87116; 88305; 88311; 93005; 93306; 93922; 93970; 97110; 97162; 97164; 97530; 99285-25